=== PATIENT | female | born 1985 | race Caucasian/White ===

== ENCOUNTER 2017-07-23 16:29 | Emergency (ER) | payer OTHER ==
[~2017-07-23] VITALS: Ht 167.6 cm; Wt 56.2 kg
== END 2017-07-23 18:29 | disposition home or self-care (01) ==
LOC: ER 16:29
DX: M79.604 Pain in right leg (principal); S76.211A Strain of adductor muscle, fascia and tendon of right thigh, initial encounter; S39.011A Strain of muscle, fascia and tendon of abdomen, initial encounter; Y93.B3 Activity, free weights
CPT/HCPCS: 36415; 85379; 99283